=== PATIENT | male | born 1980 | race Caucasian/White ===

== ENCOUNTER 2017-07-18 17:44 | Emergency (ER) | payer MEDICARE, OTHER ==
[2017-07-18 17:52] VITALS: BP 149/85
--- NOTE | 2017-07-18 18:13 | ERNOTE ---
ENT HPI Presenting Symptoms: dental pain Time Seen by Provider: 07/18/17 17:56 Source: patient Exam Limitations: no limitations - Immun/Allergies/Home Medications Immunizations: IMMUNIZATION HX Immunizations Up to Date Yes History of Influenza Vaccine No Hx Pneumococcal Vaccination No Allergies/Adverse Reactions: Allergies Allergy/AdvReac Type Severity Reaction Status Date / Time carbamazepine [From Tegretol] AdvReac Verified 07/18/17 17:53 Home Medications: HOME MEDICATIONS Divalproex Sodium [Depakote] 500 mg PO BID 05/09/12 [Last Taken Unknown] lamoTRIgine [Lamictal] 100 mg PO BID 05/09/12 [Last Taken Unknown] Atorvastatin Calcium [Lipitor] 40 mg PO DAILY 07/18/17 [Last Taken Unknown] Enalapril Maleate [Vasotec] 5 mg PO DAILY 07/18/17 [Last Taken Unknown] Naproxen [Naprosyn] 500 mg PO BID #20 tablet 07/18/17 [Last Taken Unknown] Penicillin V Potassium [Pen-Vee K] 500 mg PO Q12H #20 tab 07/18/17 [Last Taken Unknown] metFORMIN HCL [Metformin HCl] 500 mg PO BID 07/18/17 [Last Taken Unknown] - History of Present Illness Narrative: Patient presents with inflammation above the upper incisors. He rates the pain as [id number] in severity. Onset of symptoms has been over the past several days. Severity: Present: mild, moderate ENT Location: Present: dental Prearrival Treatment: Present: no prearrival treatment Modifying Factors - Improves: Reports: nothing Modifying Factors - Worsens: Reports: nothing Associated Symptoms - ENT: Reports: denies symptoms Review of Systems - Review of Systems Constitutional: Present: See HPI EYE: Present: no symptoms reported ENT: Present: See HPI Respiratory: Present: no symptoms reported Cardiology: Present: no symptoms reported Gastrointestinal/Abdominal: Present: no symptoms reported Genitourinary: Present: no symptoms reported Musculoskeletal: Present: no symptoms reported Skin: Present: no symptoms reported Neurological: Present: no symptoms reported Endocrine: Present: no symptoms reported Hematologic/Lymphatic: Present: no symptoms reported Psych: Present: no symptoms reported - Patient's Past Medical History Patient History - Medical: ADHD, Diabetes Type 2, Seizures Patient History - Cardiac/Respiratory: Hypertension, Hyperlipidemia, CPAP/BiPAP Home Use, Sleep Apnea Patient History - Cancer: No Hx of Cancer Patient History - Surgical Procedures: Other Patient History - Other: None - Social History Living Situations: home Psych History: No pertinent hx Smoking Status: Never smoker Alcohol Use: none Drug Use: none - Immunizations Immunizations Up to Date: Yes Hx Pneumococcal Vaccination: No History of Influenza Vaccine: No Physical Exam - Physical Exam General Appearance: Present: wd/wn, alert, moderate distress Head Exam: Present: normal inspection Eye Exam: Normal inspection: bilateral, PERRL: bilateral Ears, Nose, Throat: Present: normal pharynx, other - inflammation around the upper incisors Neck: Present: normal inspection, nontender Respiratory: Present: no respiratory distress, normal breath sounds, no accessory muscle use, chest nontender, lungs clear Cardiovascular/Chest: Present: regular rate, rhythm, no murmur, normal peripheral pulses Gastrointestinal/Abdominal: Present: normal bowel sounds, nontender, nondistended, soft, no organomegaly Rectal Exam: Present: deferred Back Exam: Present: normal inspection, normal range of motion Extremity Exam: Present: normal inspection, non-tender, no edema, normal range of motion Neurological Exam: Present: alert, oriented, normal mood/affect Skin Exam: Present: normal color, warm/dry Lymphatic Exam: Present: no adenopathy ED Progress - Vital Signs Patient's Vital Signs:: I have reviewed the patient's vital signs. Vital Signs: Vital Signs 07/18/17 07/18/17 17:45 17:57 Temperature 36.2 C L 36.2 C L Pulse Rate 108 H 108 H Respiratory 16 16 Rate Blood Pressure 149/85 149/85 O2 Sat by Pulse 96 96 Oximetry - Progress/Reassessment Chief Complaint: Dental Problem Plan - Plan Plan: Patient certainly has gingivitis and periodontitis and will be started on antibiotics and nonsteroidals. Was recommended that the patient call his dentist, use chlorhexidine mouth wash and take his medication as directed. Departure Clinical Impression: Gingivitis, acute, Periodontitis - Departure Disposition: Home self-care Condition: Good Instructions: Gingivitis, [id number] Referrals: Ruben Burton MD [Primary Care Provider] - Prescriptions: Naproxen [Naprosyn] 500 mg PO BID #20 tablet Penicillin V Potassium [Pen-Vee K] 500 mg PO Q12H #20 tab
== END 2017-07-18 18:22 | disposition home or self-care (01) ==
LOC: ER 17:44
DX: E11.9 Type 2 diabetes mellitus without complications; K05.00 Acute gingivitis, plaque induced; I10 Essential (primary) hypertension; F90.9 Attention-deficit hyperactivity disorder, unspecified type; K05.30 Chronic periodontitis, unspecified; R56.9 Unspecified convulsions; E78.5 Hyperlipidemia, unspecified